=== PATIENT | male | born 1950 | race Caucasian/White ===

== ENCOUNTER 2025-01-08 17:17 | Emergency (ER) | payer OTHER ==
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
[2025-01-08] MEDS ORDERED: TDAP (DIPHTH,PERTUSS(ACELL),TET VAC) 0.5 ML VIAL IMVAC ONE (19:00)
[2025-01-08 19:17] VITALS: BP 145/75; TEMP 98; O2SAT 96
== END 2025-01-08 19:05 | disposition home or self-care (01) ==
LOC: ER 17:17
DX: S60.512A Abrasion of left hand, initial encounter (principal); S50.311A Abrasion of right elbow, initial encounter; V49.40XA Driver injured in collision with unspecified motor vehicles in traffic accident, initial encounter
CPT/HCPCS: 70450; 71250; 72125; 74176; 96372; 99284

== ENCOUNTER 2025-01-31 14:33 | Inpatient (IN) | payer OTHER ==
[2025-01-31] MEDS ORDERED: ONDANSETRON 4 MG/2 ML VIAL ONE ×3 (15:23→22:23)
[2025-01-31] MEDS ORDERED: MORPHINE 4 MG/ML SYR ONE ×2 (15:23→16:52)
[2025-01-31 15:44] LABS: Absolute Basophils 0.1 K/uL (0-0.5); Absolute Eosinophils 0.1 K/uL (0-0.5); Absolute Lymphocytes (CBC) 0.5 K/uL (0.7-4.9); Absolute Monocytes 0.8 K/uL (0.1-1.3); Absolute Neutrophil 6.6 K/uL (1.8-8.0); Eosinophils % 0.7 % (0-4.4); Hematocrit 40.3 % (39.6-49.0); Hemoglobin 14.2 g/dL (13.6-17.9); Lymphocytes % 6.5 % (15.3-44.8); MCH 29.3 pg (27.0-35.0); MCHC 35.2 g/dL (32.0-36.0); MCV 83.4 fL (80-100); MPV 8.4 fL (7.6-11.3); Monocytes % 10.1 % (3.3-12.3); Neutrophils % 81.7 % (41.7-73.7); Platelets 191 thou/uL (152-406); RBC Red Blood Cell Count 4.82 M/uL (4.33-5.43); Red Cell Distribution Width 13.9 % (12.1-15.2)
[2025-01-31 16:00] LABS: Anion Gap 8.2 mEq/L (5.0-15.0); Potassium 4.2 mEq/L (3.5-5.1)
[2025-01-31] MEDS ORDERED: METHOCARBAMOL 1,000 MG/10 ML VIAL ONE (16:51)
[2025-01-31] MEDS ORDERED: NA CHLORIDE 0.9% 100 ML ONE (16:52)
--- NOTE | 2025-01-31 17:19 | RAD REPORT ---
EXAMINATION: XR PELVIS CLINICAL INDICATION: Male, 74 years old. [facility] MAIN fall Bed Name: 17 TECHNIQUE: AP Pelvis radiograph was obtained. COMPARISON: No prior exam. FINDINGS: Oblique positioning limits evaluation. Oblique mildly displaced fracture of the left femora l intertrochanteric region extending just caudal to the base of the lesser trochanter. Glenohumeral joints are well aligned with mild to moderate degenerative changes. No evidence of AVN. Soft tissue s welling about the left hip. IMPRESSION: Oblique mildly displaced left intertrochanteric femoral fracture as above.
--- NOTE | 2025-01-31 17:20 | RAD REPORT ---
EXAMINATION: XR Femur Left CLINICAL INDICATION: Male, 74 years old. fall;Pain TECHNIQUE: 2 view radiograph of the left femur were obtained. COMPARISON: No prior exam. FINDINGS: Oblique mildly displaced left intertrochanteric fracture. Normal joint alignment. Mild to m oderate left hip joint degenerative changes other focal bone lesion. Soft tissue swelling about the left hip. Vascular calcifications. IMPRESSION: Oblique mildly displaced left femoral intertrochanteric fracture.
--- NOTE | 2025-01-31 18:27 | RAD REPORT ---
EXAM: CT CHEST, ABDOMEN AND PELVIS WITH CONTRAST CLINICAL INDICATION: Male, 74 years old. FALL TECHNIQUE: CT chest, abdomen, and pelvis was performed, following the administration of contrast, as per department protocol. Axial, sagittal and coronal reconstructions were obtained. One or more of the following dose reduction techniques were used: Automated exposure control, adjustment of the mA a nd/or kV according to patient size, and/or iterative reconstruction. Unless otherwise specified, incidental findings do not require dedicated imaging follow-up. COMPARISON: 01/08/2025 FINDINGS: LUNGS AND AIRWAYS: Elevation of the right hemidiaphragm with underlying atelectasis. No evidence of a irspace or interstitial process. No nodules. PLEURA: No pleural effusion. No pneumothorax. MEDIASTINUM AND LYMPH NODES: Bilobed nodular mass with calcifications along the lower pole left thyro id lobe, extending along the upper mediastinum, left paratracheal space, with the superior component measuring 3.7 cm, and inferior component measuring 3.3 cm. This is overall stable. No media stinal mass or fluid collection. Normal size mediastinal, hilar, and axillary lymph nodes. THORACIC AORTA: Normal caliber and configuration. PULMONARY ARTERIES: Normal caliber. OSSEOUS STRUCTURES AND CHEST WALL: Intact. LIVER: Normal in size and contour. 1.6 cm subcapsular fluid density cyst along the superior margin ne ar the caudate lobe junction No other suspicious focal lesion or biliary dilitation. BILIARY SYSTEM: Status post cholecystectomy. PANCREAS: No mass, ductal dilation, or shahida-pancreatic fluid. SPLEEN: Normal size. Ovoid hypoattenuating 2.7 cm lesion near the hilum, with questionable marginal n odular enhancement. This could represent a cyst or hemangioma.. ADRENALS: Normal; no mass. KIDNEYS AND URETERS: Stable size and bilateral lobulated contour more so on the left, atrophic change s on the left. Multiple cortical fluid density lesions, largest at the left lower pole measuring 4.6 cm. Other subcentimeter foci of hypoattenuation along the renal cortices. No hydronephrosis. URINARY BLADDER: Decompressed limiting evaluation, with Voss catheter in place GASTROINTESTINAL TRACT: No bowel obstruction, free air, significant free fluid or abscess. APPENDIX: No inflammatory changes in region of appendix. LYMPH NODES: Stable mildly prominent paracaval upper abdominal lymph node measuring 1.3 cm in short a xis. No other suspicious lymphadenopathy. ABDOMINAL AORTA AND OTHER VESSELS: Normal caliber aorta and IVC. MUSCULOSKELETAL: Comminuted and mildly displaced left femoral intertrochanteric fracture, with adjace nt muscular edema. No appreciable localized hematoma. Mildly displaced anterior left 10th rib fracture. IMPRESSION: Comminuted and mildly displaced left femoral intertrochanteric fracture. Mildly displaced anterior left 10th rib fracture. Other incidental findings including benign-appearing renal and hepatic cysts, as well as a splenic hi lum cyst versus hemangioma. Bilobed nodule/masses of the left lower pole thyroid lobe extending into the upper mediastinum, which can be further evaluated by dedicated thyroid ultrasound if not previously performed.
--- NOTE | 2025-01-31 18:34 | RAD REPORT ---
EXAM: CT brain without contrast HISTORY: fall COMPARISON: 01/08/2025 TECHNIQUE: Multiple contiguous axial images were obtained and a CT of the brain without contrast. Sag ittal and coronal reformats were performed. FINDINGS: No evidence of hydrocephalus, intracranial hemorrhage, or extra-axial fluid collection. Moderate brain atrophy, and nonspecific moderate periventricular and deep white matter changes, asym metrically more pronounced along the right centrum semiovale bowel, are stable, may suggest chronic microvascular ischemic changes. The calvarium is intact. The visualized paranasal sinuses and mastoid air cells are essentially clear . IMPRESSION: No evidence of acute intracranial abnormality. EXAM: CT of the cervical spine without contrast HISTORY: fall COMPARISON: None TECHNIQUE: Multiple contiguous axial images were obtained in a CT of the cervical spine without contr ast. Sagittal and coronal reformats were performed. FINDINGS: The vertebral bodies demonstrate normal height and alignment. No evidence of acute fracture or subluxation. No prevertebral soft tissue swelling is seen. The posterior facets are well aligned. Moderate to advanced degenerative changes. C3-4 and C4-5 contr ibuting to up to severe neural foraminal narrowing on the left at C5-6. Normal alignment of the skull base with the cervical spine is seen. The lung apices are unremarkable. IMPRESSION: No evidence of acute osseous abnormality of the cervical spine. Stable degenerative changes as above.
[2025-01-31 19:05] LABS: Specific Gravity 1.027 (1.005-1.030); Sqamous Epithelial None Seen /HPF (None Seen); Urine Bacteria <20 /HPF (<20); Urine Bilirubin NEGATIVE (Negative); Urine Blood Trace (Negative); Urine Clarity Extremely Turbid (Clear); Urine Color Light-Yellow (Yellow); Urine Crystals Unidentified Few /HPF (None Seen); Urine Glucose NEGATIVE (Negative); Urine Ketones NEGATIVE (Negative); Urine Micro Reflex YN NO BILL MICROSCOPIC; Urine Mucus Slight /HPF (None Seen); Urine Nitrite NEGATIVE (Negative); Urine Protein TRACE (Negative); Urine RBC <5 /HPF (None Seen); Urine Urobilinogen Normal (Normal); Urine WBC >50 /HPF (<5); Urine WBC Clump Occasional /HPF (None Seen); Urine Yeast (Budding) Occasional /HPF (None Seen); Urine pH 5.5 (5.0-7.0)
[2025-01-31] MEDS ORDERED: CEFTRIAXONE 1000 MG/VIAL ONE (19:18)
--- NOTE | 2025-01-31 19:18 | EDPHYS ---
Physician Documentation [facility] Name: Esteban Mccarthy Age: 74 yrs Sex: Male : 1950 Arrival Date: 01/31/2025 Time: 14:33 Bed 17 Private MD: ED Physician Siva Jenkins HPI: 01/31 14:45 This 74 yrs old Male presents to ER via EMS with complaints of Fall Injury. cp 14:45 Details of fall: The patient fell from an upright position, while getting off lawnmower.cp 14:45 Onset: The symptoms/episode began/occurred just prior to arrival. Associated injuries: cp The patient sustained left hip, decreased range of motion, painful injury. Severity of symptoms: in the emergency department the symptoms are unchanged, despite EMS interventions. Historical: - Allergies: 15:06 No Known Allergies; kj2 - PMHx: 15:06 Cerebrovascular accident; diabetes mellitus; Hypertensive disorder; kj2 - PSHx: 15:06 Stented artery; kj2 - Immunization history: Last tetanus immunization: unknown. - Infectious Disease History:: Denies. - Social history:: Smoking status: Patient denies any tobacco usage or history of. ROS: 14:50 Constitutional: Negative for body aches, chills, fever, poor PO intake, cp 14:50 Eyes: Negative for injury, pain, redness, and discharge, cp 14:50 Cardiovascular: Negative for chest pain, palpitations, 14:50 Respiratory: Negative for cough, shortness of breath, wheezing, 14:50 Abdomen/GI: Negative for abdominal pain, vomiting, diarrhea, constipation, 14:50 MS/extremity: Positive for decreased range of motion, pain, of the left hip, 14:50 Neuro: Negative for altered mental status, loss of consciousness, 14:50 All other systems are negative, Exam: 14:55 Constitutional: The patient appears in no acute distress, alert, awake, non-toxic, well cp developed, well nourished, uncomfortable, 14:55 Head/Face: Normocephalic, atraumatic. cp 14:55 Eyes: Periorbital structures: appear normal, Pupils: equal, round, and reactive to light and accomodation, Extraocular movements: intact throughout, Conjunctiva: normal, no exudate, no injection, Lids and lashes: appear normal, bilaterally, 14:55 ENT: External ear(s): are unremarkable, Nose: is normal, Mouth: Lips: moist, Oral mucosa: moist, Posterior pharynx: Airway: no evidence of obstruction, patent, 14:55 Neck: ROM/movement: pain, is not appreciated, limited range of motion, is not appreciated, 14:55 Chest/axilla: Inspection: normal, 14:55 Cardiovascular: Rate: normal, Rhythm: regular, Edema: is not appreciated, JVD: is not appreciated, 14:55 Respiratory: the patient does not display signs of respiratory distress, Respirations: normal, no use of accessory muscles, no retractions, labored breathing, is not present, Breath sounds: are clear throughout, no decreased breath sounds, no stridor, no wheezing, 14:55 Abdomen/GI: Inspection: abdomen appears normal, Bowel sounds: active, all quadrants, Palpation: abdomen is soft and non-tender, in all quadrants, 14:55 Musculoskeletal/extremity: Extremities: noted in the left hip: decreased ROM, pain, 14:55 Neuro: Orientation: to person, place \T\ time. Mentation: is normal, Motor: moves all fours, left side weakness from previous CVA, 20:17 ECG was reviewed by the Attending Physician. cp Vital Signs: 15:04 BP 131 / 72; Pulse 73; Resp 20; Temp 98.3; Pulse Ox 100% ; Weight 83.91 kg; Height 5 kj2 ft. 9 in. ; Pain 10/10; 15:44 BP 135 / 81; Pulse 78; Resp 20; Pulse Ox 96% ; kj2 17:11 BP 131 / 78; Pulse 76; Resp 20; Pulse Ox 98% ; kj2 18:22 BP 117 / 68; Pulse 65; Resp 18; Pulse Ox 100% ; kj2 19:27 BP 130 / 67; Pulse 75; Resp 20; Pulse Ox 95% ; kj2 15:04 Body Mass Index 27.32 (83.91 kg, 175.26 cm) kj2 15:04 Pain Scale: Adult kj2 [place] Coma Score: 14:50 Eye Response: spontaneous(4). Motor Response: obeys commands(6). Verbal Response: kj2 oriented(5). Total: 15. Trauma Score (Adult): 14:50 Eye Response: spontaneous(1); Verbal Response: oriented(1); Motor Response: obeys kj2 commands(2); Systolic BP: > 89 mm Hg(4); Respiratory Rate: 10 to 29 per min(4); Al Score: 15; Trauma Score: 12 MDM: 14:46 Medical Screening Exam initiated cp 16:00 Differential diagnosis: closed head injury, contusion, fracture, laceration, multiple cp trauma, intracranial bleed. 19:20 Data reviewed: vital signs, nurses notes, lab test result(s), EKG, radiologic studies, CT scan, plain films, I have discussed the patient's presentation/case with the attending Emergency Department Physician; and as a result, I will admit patient. 19:20 I considered the following discharge prescriptions or medication management in the emergency department Medications were administered in the Emergency Department. See MAR. Independent interpretation of the following test(s) in the Emergency Department EKG: See my EKG interpretation above X-Ray: My interpretation is images of left hip show displaced fracture. Care significantly affected by the following chronic conditions: Diabetes, Hypertension. Counseling: I had a detailed discussion with the patient and/or guardian regarding the historical points, exam findings, and any diagnostic results supporting the discharge/admit diagnosis, lab results, radiology results, the need for further work-up and treatment in the hospital. Response to treatment: the patient's symptoms have mildly improved after treatment. 01/31 15:13 Order name: Basic Metabolic Panel; Complete Time: 16:05 01/31 18:49 Interpretation: Reviewed. 01/31 15:13 Order name: CBC with Diff; Complete Time: 16:05 01/31 15:13 Order name: Type And Screen; Complete Time: 17:22 01/31 16:07 Order name: Urinalysis W/Microscopic; Complete Time: 19:07 01/31 19:07 Interpretation: Reviewed. 01/31 19:55 Order name: Protime (+INR) EDMN 01/31 19:55 Order name: PTT, Activated Partial Thromb EDMN 01/31 19:55 Order name: CBC with Automated Diff EDMS 01/31 19:55 Order name: CBC with Automated Diff EDMS 01/31 19:55 Order name: Comprehensive Metabolic Panel EDMN 01/31 19:55 Order name: Comprehensive Metabolic Panel [facility] 01/31 14:46 Order name: XRAY Pelvis; Complete Time: 17:22 cp 01/31 17:23 Interpretation: Report reviewed. cp 01/31 14:46 Order name: XRAY Femur LEFT; Complete Time: 17:22 cp 01/31 16:25 Order name: Head C Spine Mpr Wo Con; Complete Time: 18:46 EDMS 01/31 16:27 Order name: Chest Abdomen Pelvis W Cont; Complete Time: 18:46 EDMS 01/31 19:55 Order name: EKG Electrocardiogram; Complete Time: 20:35 EDMS 01/31 19:55 Order name: EKG Electrocardiogram; Complete Time: 20:35 EDMS 01/31 15:13 Order name: Labs collected and sent; Complete Time: 15:38 cp 01/31 15:13 Order name: IV; Complete Time: 15:38 cp 01/31 16:07 Order name: Voss; Complete Time: 16:31 cp EC:17 Rate is 75 beats/min. Rhythm is regular. ME interval is normal. QRS interval is cp prolonged at 108 msec. QT interval is normal. T waves are Inverted in lead aVR. Interpreted by me. Reviewed by me. Administered Medications: 15:38 Drug: morphine IVP or IV 4 mg IVP once over 4 mins Route: IVP; Infused Over: 4 mins; kj2 Site: right forearm; 23:55 Follow up: Response: No adverse reaction kj2 15:38 Drug: Ondansetron IVP 4 mg IVP once; over 2 minutes Route: IVP; Site: right forearm; kj2 23:55 Follow up: Response: No adverse reaction kj2 17:10 Drug: morphine IVP or IV 4 mg IVP once over 4 mins Route: IVP; Infused Over: 4 mins; kj2 Site: right forearm; 23:55 Follow up: Response: No adverse reaction kj2 17:10 Drug: Methocarbamol IVPB 1 grams IVPB once over 1 hrs; (mix in NS 100 mL) Route: IVPB; kj2 Infused Over: 1 hrs; Site: right forearm; 19:26 Drug: NS 0.9% IV 500 ml 500 ml IV at 1 bolus once; to be given as a bolus over 60 kj2 minutes Volume: 500 ml; Route: IV; Rate: 1 bolus; Site: right forearm; 22:10 Follow up: IV Status: Completed infusion; IV Intake: 500ml kj2 19:26 Drug: HYDROmorphone IVP 1 mg IVP once Route: IVP; Site: right forearm; kj2 22:09 Follow up: Response: No adverse reaction kj2 19:26 Drug: Rocephin IV 1 grams IV at calculated rate once; Given slow IV push per pharmacy kj2 instructions Route: IV; Rate: calculated rate; Site: right forearm; 22:09 Follow up: IV Status: Completed infusion; IV Intake: 10ml kj2 19:51 Drug: Ondansetron IVP 4 mg IVP once; over 2 minutes Route: IVP; Site: right forearm; kj2 22:09 Follow up: Response: No adverse reaction kj2 Disposition Summary: 01/31/25 19:17 Hospitalization Ordered Notes: Hospitalization Status: Inpatient Admission cp Provider: Vira Hitchcock cp Location: Telemetry/MedSurg (Inpatient) cp Condition: Stable cp Problem: new cp Symptoms: have improved cp Bed/Room Type: Standard cp Room Assignment: 402(01/31/25 22:06) kl Diagnosis - Displaced intertrochanteric fracture of left femur, initial encounter for closed cp fracture - Fracture of one rib, left side, initial encounter for closed fracture cp - Fall on same level, unspecified cp Forms: - Medication Reconciliation Form cp - SBAR form cp - Leadership Thank You Letter cp Addendum: 02/10/2025 21:37 Co-signature as Attending Physician, Siva Jenkins MD I reviewed the patient's care r n provided by the Advanced Practice Provider and agree with the diagnosis and treatment plan. Signatures: Dispatcher [employer] Sarah Medina RN RN kl Nieto, Roman, MD MD rn Page, Corey, PA PA cp Belia Merino RN RN kj2 Corrections: (The following items were deleted from the chart) 01/31 16:08 16:08 Urinalysis W/Microscopic+U.LAB.BRZ ordered. EDMS EDMS 16:25 16:06 Head C Spine CAP W Con+CT.RAD.BRZ ordered. EDMS EDMS 21:45 19:17 cp kl 22:06 21:45 201 kl kl
--- NOTE | 2025-01-31 19:18 | ER ---
Nurse's Notes [facility] Name: Esteban Mccarthy Age: 74 yrs Sex: Male : 1950 Arrival Date: 01/31/2025 Time: 14:33 Bed 17 Private MD: Diagnosis: Displaced intertrochanteric fracture of left femur, initial encounter for closed fracture;Fracture of one rib, left side, initial encounter for closed fracture;Fall on same level, unspecified Presentation: 01/31 14:50 Chief complaint: EMS states: fell off [place] [employer]. Care prior to arrival: kj2 Medication(s) given: Tylenol, 1000 mg. Mechanism of Injury: Fall fell from riding [employer]. Trauma event details: Injury occurred: January 31, 2025. 14:50 Acuity: SHIKHA 3 kj2 14:50 Method Of Arrival: EMS: [facility] kj2 14:50 Coronavirus screen: Client denies travel out of the [place] in the last 14 days. Ebola kj2 Screen: No symptoms or risks identified at this time. Initial Sepsis Screen: Does the patient meet any 2 criteria? Yes Does the patient have a suspected source of infection? No. Patient's initial sepsis screen is negative. Risk Assessment: Do you want to hurt yourself or someone else? Patient reports no desire to harm self or others. 14:50 Onset of symptoms was January 31, 2025. kj2 Historical: - Allergies: 15:06 No Known Allergies; kj2 - PMHx: 15:06 Cerebrovascular accident; diabetes mellitus; Hypertensive disorder; kj2 - PSHx: 15:06 Stented artery; kj2 - Immunization history: Last tetanus immunization: unknown. - Infectious Disease History:: Denies. - Social history:: Smoking status: Patient denies any tobacco usage or history of. Screenin:50 [facility] ED Fall Risk Assessment (Adult) History of falling in the last 3 months, kj2 including since admission Yes- single mechanical fall (1 pt) Confusion or Disorientation No (0 pts) Intoxicated or Sedated No (0 pts) Impaired Gait Yes (1 pt) Mobility Assist Device Used Yes (1 pt) Altered Elimination Yes (1 pt) Score/Fall Risk Level 3 or more points = High Risk Maintained a safe environment, Educated pt \T\ family on fall prevention, incl call for assistance when getting out of bed, Hourly rounding (assess needs \T\ fall precautionary measures) done. Abuse screen: Denies threats or abuse. Denies injuries from another. Nutritional screening: No deficits noted. Tuberculosis screening: No symptoms or risk factors identified. Primary Survey: 14:50 NO uncontrolled hemorrhage observed. Breathing/Chest: Spontaneous respiratory effort, kj2 equal unlabored respirations, breath sounds clear bilaterally, regular pattern, symmetrical chest rise and fall. Respiratory effort: unlabored, Breath sounds: clear. Circulation: No external hemorrhage present. Regular and strong central pulse, skin warm/dry/normal color. Disability Pupils are equal, round, reactive to light and accommodation. Exposure/Environment: All clothing and personal items were removed. Forensic evidence collection is not deemed to be indicated at this time. Items placed in patient belonging bag. 15:40 Reassessment Alertness and Airway: Awake and alert. The airway is patent. Breathing: kj2 Spontaneous respiratory effort, equal unlabored respirations, breath sounds clear bilaterally, regular pattern with symmetrical chest rise and fall. Circulation: No external hemorrhage noted. Regular and strong central pulse, skin warm/dry/normal color. Secondary Survey: 14:50 HEENT: No deficits noted. Gastrointestinal: Abdomen is non-distended. : No signs kj2 and/or symptoms were reported regarding the genitourinary system. Musculoskeletal: Reports pain in left hip. Assessment: 14:50 General: Appears uncomfortable, Behavior is calm, cooperative. Pain: Complains of pain kj2 in left hip Pain currently is 10 out of 10 on a pain scale. Neuro: Level of Consciousness is awake, Oriented to person, place, time, situation. Cardiovascular: Patient's skin is warm and dry. Respiratory: Airway Respiratory effort is even, unlabored. GI: No signs and/or symptoms were reported involving the gastrointestinal system. : No signs and/or symptoms were reported regarding the genitourinary system. 15:44 Reassessment: Patient appears in no apparent distress at this time. Patient and/or kj2 family updated on plan of care and expected duration. Pain level reassessed. Patient is alert, oriented x 3, equal unlabored respirations, skin warm/dry/pink. 17:11 Reassessment: Patient appears in no apparent distress at this time. Patient and/or kj2 family updated on plan of care and expected duration. Pain level reassessed. Patient is alert, oriented x 3, equal unlabored respirations, skin warm/dry/pink. 18:19 Reassessment: Patient appears in no apparent distress at this time. Patient and/or kj2 family updated on plan of care and expected duration. Pain level reassessed. Patient is alert, oriented x 3, equal unlabored respirations, skin warm/dry/pink. 19:27 Reassessment: Patient appears in no apparent distress at this time. Patient and/or kj2 family updated on plan of care and expected duration. Pain level reassessed. Patient is alert, oriented x 3, equal unlabored respirations, skin warm/dry/pink. Vital Signs: 15:04 BP 131 / 72; Pulse 73; Resp 20; Temp 98.3; Pulse Ox 100% ; Weight 83.91 kg; Height 5 kj2 ft. 9 in. ; Pain 10/10; 15:44 BP 135 / 81; Pulse 78; Resp 20; Pulse Ox 96% ; kj2 17:11 BP 131 / 78; Pulse 76; Resp 20; Pulse Ox 98% ; kj2 18:22 BP 117 / 68; Pulse 65; Resp 18; Pulse Ox 100% ; kj2 19:27 BP 130 / 67; Pulse 75; Resp 20; Pulse Ox 95% ; kj2 15:04 Body Mass Index 27.32 (83.91 kg, 175.26 cm) kj2 15:04 Pain Scale: Adult kj2 Al Coma Score: 14:50 Eye Response: spontaneous(4). Motor Response: obeys commands(6). Verbal Response: kj2 oriented(5). Total: 15. Trauma Score (Adult): 14:50 Eye Response: spontaneous(1); Verbal Response: oriented(1); Motor Response: obeys kj2 commands(2); Systolic BP: > 89 mm Hg(4); Respiratory Rate: 10 to 29 per min(4); Hazel Score: 15; Trauma Score: 12 ED Course: 14:44 Patient arrived in ED. bd 14:44 Reuben Michele PA is PHCP. cp 14:44 Siva Jenkins MD is Attending Physician. cp 14:50 Maintain EMS IV. Dressing intact. Good blood return noted. Site clean \T\ dry. Gauge \T\ kj 2 site: 20g right forearm. Flushed with 10 mL NS. 14:50 Patient maintains SpO2 saturation greater than 95% on room air. kj2 14:50 No provider procedures requiring assistance completed. kj2 14:50 Patient has correct armband on for positive identification. Bed in low position. Call kj2 light in reach. Provided Education on: call light. 14:50 Arm band placed on Patient placed in an exam room. kj2 14:59 Belia Merino, RN is Primary Nurse. kj2 15:01 Triage completed. kj2 15:28 XRAY Pelvis In Process Unspecified. EDMS 15:28 XRAY Femur LEFT In Process Unspecified. EDMS 16:31 Voss cath inserted, using sterile technique, 16 Fr., by me, balloon inflated, to ty gravity drainage. 17:01 Head C Spine Mpr Wo Con In Process Unspecified. EDMS 17:01 Chest Abdomen Pelvis W Cont In Process Unspecified. EDMS 19:16 Vira Hitchcock MD is Hospitalizing Provider. cp 23:24 Patient admitted, IV remains in place. ha1 Administered Medications: 15:38 Drug: morphine IVP or IV 4 mg IVP once over 4 mins Route: IVP; Infused Over: 4 mins; kj2 Site: right forearm; 23:55 Follow up: Response: No adverse reaction kj2 15:38 Drug: Ondansetron IVP 4 mg IVP once; over 2 minutes Route: IVP; Site: right forearm; kj2 23:55 Follow up: Response: No adverse reaction kj2 17:10 Drug: morphine IVP or IV 4 mg IVP once over 4 mins Route: IVP; Infused Over: 4 mins; kj2 Site: right forearm; 23:55 Follow up: Response: No adverse reaction kj2 17:10 Drug: Methocarbamol IVPB 1 grams IVPB once over 1 hrs; (mix in NS 100 mL) Route: IVPB; kj2 Infused Over: 1 hrs; Site: right forearm; 19:26 Drug: NS 0.9% IV 500 ml 500 ml IV at 1 bolus once; to be given as a bolus over 60 kj2 minutes Volume: 500 ml; Route: IV; Rate: 1 bolus; Site: right forearm; 22:10 Follow up: IV Status: Completed infusion; IV Intake: 500ml kj2 19:26 Drug: HYDROmorphone IVP 1 mg IVP once Route: IVP; Site: right forearm; kj2 22:09 Follow up: Response: No adverse reaction kj2 19:26 Drug: Rocephin IV 1 grams IV at calculated rate once; Given slow IV push per pharmacy kj2 instructions Route: IV; Rate: calculated rate; Site: right forearm; 22:09 Follow up: IV Status: Completed infusion; IV Intake: 10ml kj2 19:51 Drug: Ondansetron IVP 4 mg IVP once; over 2 minutes Route: IVP; Site: right forearm; kj2 22:09 Follow up: Response: No adverse reaction kj2 Medication: 15:00 VIS not applicable for this client. kj2 Intake: 22:09 IV: 10ml; Total: 10ml. kj2 22:10 IV: 500ml; Total: 510ml. kj2 Outcome: 19:17 Decision to Hospitalize by Provider. cp 23:23 Admitted to Tele accompanied by tech, via stretcher, room 402, with chart, ha1 23:23 Condition: stable 23:23 Instructed on the need for admit, Demonstrated understanding of instructions, 23:24 Patient left the ED. ha1 Signatures: Dispatcher [employer] EDMS Natty Hess Corey, PA PA cp Marilyn Bedoya, RN RN ha1 John Rmairez Krystal, PAUL RN kj2
[2025-01-31] MEDS ORDERED: NA CHLORIDE 0.9% 500 ML ONE (19:19)
[2025-01-31] MEDS ORDERED: HYDROMORPHONE HCL 1 MG/ML INJ ONE (19:19)
--- NOTE | 2025-01-31 19:57 | P.HP ---
Patient History Date of Service: 02/01/25 Reason for admission: Left hip fracture History of Present Illness: This is a pleasant 74-year-old male with a past medical history of CVA x 2, CAD (stent placed), diabetes, hypertension presenting after a fall from his tractor resulting in left hip fracture alongside left rib fracture. He states he was mowing his yard and when he went to get off the tractor he fell over. He did not lose consciousness. He denies any fevers, focal, chest, syncope-like symptom, diaphoresis. He rates the pain as a 9 out of 10. He is retired. He denies any illicit drug use. He does endorse some leg swelling Allergies No Known Allergies Allergy (Unverified 01/31/25 23:44) Home Medications: Amlodipine Besylate 10 mg PO DAILY 01/31/25 Aspirin [Aspirin Regimen] 81 mg PO DAILY 01/31/25 Clopidogrel Bisulfate [Plavix] 75 mg PO DAILY 01/31/25 Lisinopril/Hydrochlorothiazide [Lisinopril-Hctz 20-12.5 mg Tab] 1 each PO DAILY 01/31/25 Metformin ER [Glucophage ER] 500 mg PO DAILY 01/31/25 Metoprolol Tartrate 50 mg PO BID 01/31/25 Pravastatin Sodium 40 mg PO DAILY 01/31/25 Review of Systems General: Unremarkable Eyes: Unremarkable ENT: Unremarkable Respiratory: Unremarkable Cardiovascular: Unremarkable Gastrointestinal: Unremarkable Genitourinary: Unremarkable Musculoskeletal: Other (Hip pain) Integumentary: Bruising Neurological: Unremarkable Physical Examination - Physical Exam General: Alert, In no apparent distress HEENT: Normocephalic Neck: Supple Respiratory: Clear to auscultation bilaterally Cardiovascular: No edema Capillary refill: <2 Seconds Gastrointestinal: Normal bowel sounds Musculoskeletal: No clubbing Integumentary: No rashes Neurological: Normal gait, Normal speech Lymphatics: No axilla or inguinal lymphadenopathy - Studies Laboratory Data (last 24 hrs) 01/31/25 01/31/25 15:29 15:29 WBC 8.10 Hgb 14.2 Hct 40.3 Plt Count 191 Sodium 137 Potassium 4.2 BUN 27 H Creatinine 1.37 H Glucose 153 H Assessment and Plan - Plan Left hip fracture Left rib fracture UTI History of CVA Type 2 diabetes mellitus Hypertension Thyroid nodule/mass Elevated creatinine Admit to floor IV fluids and pain control Orthopedic surgery consulted Start Rocephin, urine culture pending Sliding scale insulin Follow-up thyroid nodules outpatient PT/OT DVT prophylaxis with Lovenox - Advance Directives Does patient have a Living Will: No Does patient have a Durable POA for Healthcare: No
[2025-01-31] MEDS: NA CHLORIDE 0.9% 1,000 ML IV SCH (20:00)
[2025-01-31] MEDS ORDERED: NA CHLORIDE 0.9% 1,000 ML ONE (22:05)
[2025-01-31] MEDS: ONDANSETRON 4 MG/2 ML VIAL IV PRN (22:23)
[2025-02-01] MEDS: MORPHINE 4 MG/ML SYR IV PRN (01:27)
[2025-02-01] MEDS ORDERED: GLUCAGON 1 MG/VIAL IM PRN (04:25)
[2025-02-01] MEDS ORDERED: D10W 125 ML IV PRN (04:25)
[2025-02-01] MEDS: CEFTRIAXONE 1,000 MG in NA CHLORIDE 0.9% 50 ML IVPB SCH (06:02)
[2025-02-01 06:37] LABS: Albumin 2.8 g/dL (3.4-5.0); Albumin/Globulin Ratio 0.9 (1.1-1.8); Anion Gap 10.3 mEq/L (5.0-15.0); Bilirubin Total 0.6 mg/dL (0.2-1.0); Globulin 3.1 g/dL (2.3-3.5); Potassium 4.3 mEq/L (3.5-5.1); Protein, Total 5.9 g/dL (6.4-8.2)
[2025-02-01 06:53] LABS: PT Prothrombin Time 13.1 SECONDS (10-13.0); Protime INR 1.16
[2025-02-01] MEDS: INSULIN REGULAR (HUMAN) 100 UNIT/ML SQ SCH (07:30)
[2025-02-01] MEDS: FLU (Fluarix Triv) TS24-25(6MOS UP)/PF 45 MCG/0.5 ML Syringe IM ONE (07:30)
[2025-02-01 07:36] LABS: Absolute Basophils 0.1 K/uL (0-0.5); Absolute Lymphocytes (CBC) 0.5 K/uL (0.7-4.9); Absolute Monocytes 1.3 K/uL (0.1-1.3); Absolute Neutrophil 9.4 K/uL (1.8-8.0); Basophils % 0.5 % (0-1.3); Eosinophils % 0.1 % (0-4.4); Hematocrit 36.2 % (39.6-49.0); Hemoglobin 12.3 g/dL (13.6-17.9); Lymphocytes % 4.1 % (15.3-44.8); MCV 85.3 fL (80-100); MPV 8.7 fL (7.6-11.3); Monocytes % 11.8 % (3.3-12.3); Neutrophils % 83.5 % (41.7-73.7); Nucleated Red Blood Cells % 0.1 % (0-0); Platelets 161 thou/uL (152-406); RBC Red Blood Cell Count 4.24 M/uL (4.33-5.43); Red Cell Distribution Width 14.3 % (12.1-15.2)
[2025-02-01] MEDS: PNEUMOCOCCAL VACCINE 0.5 ML IMVAC ONE (08:00)
--- NOTE | 2025-02-01 08:57 | CON ---
Date of Consultation: 02/01/2025 Reason For Consultation: Left hip pain. History Of Present Illness: Esteban is a 74-year-old male, who presented to the ER after sustaining a fall onto his left side with subsequent pain in the left hip and inability to bear weight. The patient was getting out of his tractor and lost balance and fell onto his left side. The patient has history of a stroke affecting his left side with left side being weaker. The patient mobilizes using a walker normally. The patient denies any other musculoskeletal complaints at this time. Review of Systems: As above, otherwise negative. Past Medical History: Includes coronary artery disease, diabetes, hypertension, history of stroke. Past Surgical History: Includes coronary artery stents. Allergies: NO KNOWN DRUG ALLERGIES. Home Medications: Amlodipine, aspirin, Plavix, lisinopril, hydrochlorothiazide, metformin, metoprolol, pravastatin. Social History: Denies tobacco use. Physical Examination: General: No apparent distress. HEENT: Normocephalic, atraumatic. Neck: Supple. Cardiovascular: Brisk cap refill to all digits. Chest: Nonlabored breathing. Abdomen: Nondistended. Psychiatric: Responds to exam. Musculoskeletal: Bilateral upper extremities: Functional range of motion without pain. No gross deformities. No obvious dislocations. Right lower extremity: Functional range of motion without pain. No gross deformities. No obvious dislocations. Left lower extremity: Pain with range of motion of the left hip. Tenderness to palpation over the left hip and swelling of the left thigh. Sensation grossly intact to the dorsal and plantar surface of the foot and vastly intact distally. Diagnostic Studies: X-rays and CAT scan demonstrate a displaced left intertrochanteric femur fracture. Assessment And Plan: Esteban is a 74-year-old male with a left intertrochanteric femur fracture. I discussed with the patient at length his diagnosis as well as risks and benefits associated with operative and nonoperative treatment measures. Given his displaced unstable fracture pattern, recommend surgical fixation with cephalomedullary device. Risks and benefits associated with the procedure were discussed with the patient at length and he expressed understanding. We will proceed with surgery later today. CV/MODL Voice ID: [id number] Report ID: [id number] [place]
[2025-02-01] MEDS: METOPROLOL TAR 50 MG TAB PO SCH (09:00)
[2025-02-01] MEDS: AMLODIPINE 10 MG TAB PO SCH (09:00)
[2025-02-01] MEDS: ATORVASTATIN 10 MG TAB PO SCH (09:00)
[2025-02-01] MEDS: NA CHLORIDE 0.9% 1,000 ML ONE ×2 (11:07→13:04)
[2025-02-01] MEDS: ROPLVACAINE HCL 20 ML ONE (11:14)
[2025-02-01] MEDS: CEFAZOLIN SODIUM 2 GM/VIAL ONE (11:20)
[2025-02-01] MEDS ORDERED: ROCURONIUM 50 MG/5 ML VIAL IV ONE (11:26)
[2025-02-01] MEDS ORDERED: KETOROLAC 30 MG/ML INJ ONE (11:26)
[2025-02-01] MEDS ORDERED: FENTANYL CITR 100 MCG/2 ML ONE (11:26)
[2025-02-01] MEDS ORDERED: propofoL 200 MG/20 ML VIAL IV ONE (11:26)
[2025-02-01] MEDS ORDERED: LIDOCAINE 2% MPF 5 ML VIAL ONE (11:26)
[2025-02-01] MEDS ORDERED: ONDANSETRON 4 MG/2 ML VIAL ONE (11:26)
[2025-02-01] MEDS ORDERED: MIDAZOLAM HCL 2 MG/2 ML INJ ONE (11:26)
[2025-02-01] MEDS ORDERED: dexAMETHasone 10 MG/ML VIAL ONE ×2 (11:26→12:13)
[2025-02-01] MEDS ORDERED: Phenylephrine HCl 10 MG/ML 1 ML VIAL ONE (12:00)
[2025-02-01] MEDS: TRANEXAMIC ACID 1,000 MG/10 ML VIAL IV ONE (12:05)
[2025-02-01] MEDS ORDERED: EPINEPHrine 1 MG/10 ML SYR ONE (12:13)
--- NOTE | 2025-02-01 13:34 | P.BOP ---
Preoperative diagnosis: Left intertrochanteric femur fracture Postoperative diagnosis: Same Primary procedure: Cephalomedullary fixation of left intertrochanteric femur fracture Stone Planer: NONE,NONE Estimated blood loss: 100 cc Specimen: None Findings: See dictation Anesthesia: General Complications: None Drain(s): Urinary catheter Implants: 11 x 400 mm 125 degree Biomet affixus nail, 95 mm lag screw Fluids & blood products: Per anesthesia record Transferred to: Recovery Room Condition: Good
--- NOTE | 2025-02-01 14:15 | RAD REPORT ---
EXAM: Fluoroscopy use, Hip in OR Left 2 View HISTORY: Left Hip rodding COMPARISON: None FINDINGS: Multiple images were sent to PACS, during a fluoroscopically guided procedure. No radiologi st was involved in protocoling or performance of the study, and no radiologist was present for the duration of the procedure. No interpretation of the saved images will be provided. Total fluoroscopy time: 1.3 minutes. IMPRESSION: Documentation of fluoroscopy use as above.
[2025-02-01] MEDS: EPHEDRINE SULF 50 MG/ML VIAL ONE (14:19)
[2025-02-01] MEDS: ONDANSETRON 4 MG/2 ML VIAL ONE (14:22)
[2025-02-01 15:01] LABS: Hematocrit 31.5 % (39.6-49.0); Hemoglobin 10.7 g/dL (13.6-17.9)
--- NOTE | 2025-02-01 15:12 | RAD REPORT ---
EXAMINATION: XR LEFT FEMUR CLINICAL INDICATION: . s/p L hip nail TECHNIQUE: Multiple views of the left femur were obtained. COMPARISON: No prior exam. FINDINGS: Intramedullary allie is seen spanning the femur. Skin james are noted laterally and distall y. No unexpected postoperative finding.
--- NOTE | 2025-02-01 16:22 | P.PN ---
Subjective Date of Service: 02/01/25 The OR for open reduction internal fixation of femur fracture. Patient will get physical therapy started in work on patient going to inpatient rehab. Review of Systems 10-point ROS is otherwise unremarkable Physical Examination - Vital Signs Temperature: 97.9 F Blood Pressure: 121/57 Pulse: 98 Respirations: 18 Pulse Ox (%): 90 - Physical Exam General: Alert, In no apparent distress HEENT: Atraumatic, PERRLA, EOMI Neck: Supple, JVD not distended Respiratory: Clear to auscultation bilaterally, Normal air movement Cardiovascular: Regular rate/rhythm, Normal S1 S2 Gastrointestinal: Normal bowel sounds, No tenderness Musculoskeletal: No tenderness Integumentary: No rashes Neurological: Normal speech, Normal tone, Normal affect Lymphatics: No axilla or inguinal lymphadenopathy - Studies Medications List Reviewed: Yes Assessment & Plan - Problems (Diagnosis) (1) Closed left hip fracture Current Visit: Yes Status: Acute (2) CVA (cerebral vascular accident) Current Visit: Yes Status: Acute (3) HTN (hypertension) Current Visit: Yes Status: Acute (4) DM2 (diabetes mellitus, type 2) Current Visit: Yes Status: Acute - Plan Plan: 1. Patient with close left hip fracture status post open reduction internal fixation; plan to continue with physical therapy and we will do DVT prophylaxis and pain control. Working on inpatient rehab placement 2. History of CVA; continue with antiplatelet therapy and statin therapy 3. Metabolic syndrome; continue with strict blood pressure and blood sugar control Discharge Plan: Home Plan to discharge in: Greater than 2 days - Advance Directives Does patient have a Living Will: No Does patient have a Durable POA for Healthcare: No - Code Status/Comfort Care Code Status Assessed: Yes Code Status: Full Code Critical Care: No Time Spent Managing PTS Care (In Minutes): 35
[2025-02-01] MEDS ORDERED: ENOXAPARIN 40 MG/0.4 ML SQ SCH (17:00)
[2025-02-01] MEDS: HYDROCODONE/APAP 7.5/325 MG TAB PO PRN (18:02)
[2025-02-01] MEDS: CEFAZOLIN SODIUM 2 GM in NA CHLORIDE 0.9% 100 ML IVPB SCH (18:04)
[2025-02-02] MEDS: ENOXAPARIN 40 MG/0.4 ML SQ SCH (08:28)
--- NOTE | 2025-02-02 10:14 | P.PN ---
Subjective Date of Service: 02/02/25 Chief Complaint: Left hip fracture Subjective: Working w/ PT Pain controlled. Physical Examination - Vital Signs Temperature: 98.2 F Blood Pressure: 125/66 Pulse: 79 Respirations: 18 Pulse Ox (%): 96 - Physical Exam General: Alert, In no apparent distress Musculoskeletal: Other (Left lower extremity: Dressing with mild sanguinous drainage; mild swelling to the left thigh; positive EHL/FHL/GSC/TA; sensation grossly intact over dorsal and plantar foot) - Studies Medications List Reviewed: Yes Assessment And Plan - Plan Esteban is a 74-year-old male status post left hip nail postoperative day #1 - Acute postoperative blood loss anemia; continue to monitor H&H - PT to mobilize touchdown weightbearing left lower extremity - Lovenox for DVT prophylaxis - Await inpatient rehab eval and insurance approval
--- NOTE | 2025-02-02 10:34 | P.OP ---
Preoperative diagnosis: Left intertrochanteric femur fracture Postoperative diagnosis: Same Primary procedure: Cephalomedullary fixation of left intertrochanteric femur fracture Anesthesia: General Estimated blood loss: 100 cc Specimen: None Findings: See dictation Operative Technique: Indication For Procedure: Esteban is a 74-year-old male who presented to the ER after sustaining a fall with subsequent pain to the left hip. X-rays demonstrated a displaced left intertrochanteric femur fracture with a long split below the lesser trochanter. I discussed with the patient at length the diagnosis as well as treatment options. Given the displaced fracture and the fracture pattern, I elected to proceed with long cephalomedullary fixation of the left intertrochanteric femur fracture. Description Of Procedure: After informed consent was obtained, the patient was identified in the preoperative holding area. The left lower extremity was marked. The patient was then brought back to the operative room, transferred to the operating table in supine fashion, placed under general LMA anesthesia. The patient was placed on the fracture table with his extremities well padded. The left lower extremity was manipulated on the fracture table, and fluoroscopy was used to ensure proper reduction of the fracture. Once fracture was reduced, the left lower extremity was prepped and draped in usual sterile fashion. A time-out was initiated. The correct patient and procedure were confirmed and identified. The patient did receive his preoperative prophylactic antibiotics. Approximately, a 5 cm longitudinal incision was made just proximal to the greater trochanter. Dissection was taken down through the tensor fascia jigar. A guide pin was then placed on the tip of the greater trochanter and down the femoral canal in an antegrade fashion. Proper positioning was confirmed using fluoroscopy. Anterior reamer was placed over the guide pin, followed by a ball-tipped guidewire down the femoral canal to the distal femur. The femoral canal was then reamed in 1 mm increments starting at 8 mm reamer to a 13 mm reamer with good fit. At that point, an 11 mm x 400 mm femoral nail was selected with a 125-degree neck angle as calculated using preoperative imaging. A guide pin was then placed down over the lateral hip into the center-center position on the femoral head, confirming the location was femoral with fluoroscopy. The center-center pin was measured and a size 95 mm lag screw was selected. A 95 mm lag screw was placed followed by placement of an 80 mm antirotational screw. Next, fluoroscopy was used to confirm proper positioning. A single interlocking screw was placed in distal portion of the nail using the perfect bill moore's slough technique with flouroscopy. It was placed in bicortical manner. The wounds were then irrigated thoroughly with normal saline. The femoral implant was locked into position. The deep tissue was approximated using 0 Vicryl. Subcutaneous tissue was approximated using a 2-0 Vicryl. Skin was approximated using james. Sterile dressings were applied. The patient was brought off the fracture table and placed back onto his bed in supine position without complication. Postoperative Plan: The patient will be touchdown weightbearing to the left lower extremity for the first 6 weeks. He will follow up in my clinic in 2 weeks for wound check and staple removal. Complications: None Drain(s): Urinary catheter Implants: 11 x 400, 125 degree mm Biomet affixus nail, 95 mm lag screw Fluids & blood products: per anesthesia record Transferred to: Recovery Room Condition: Good
[2025-02-02 11:38] LABS: Absolute Lymphocytes (CBC) 0.4 K/uL (0.7-4.9); Absolute Monocytes 1.9 K/uL (0.1-1.3); Absolute Neutrophil 10.1 K/uL (1.8-8.0); Basophils % 0.4 % (0-1.3); Hematocrit 26.1 % (39.6-49.0); Hemoglobin 8.9 g/dL (13.6-17.9); Lymphocytes % 3.1 % (15.3-44.8); MCH 29.2 pg (27.0-35.0); MCHC 34.2 g/dL (32.0-36.0); MCV 85.4 fL (80-100); MPV 8.9 fL (7.6-11.3); Monocytes % 15.3 % (3.3-12.3); Neutrophils % 81.2 % (41.7-73.7); Platelets 134 thou/uL (152-406); RBC Red Blood Cell Count 3.06 M/uL (4.33-5.43)
[2025-02-02 11:49] LABS: Anion Gap 8.6 mEq/L (5.0-15.0); Potassium 4.6 mEq/L (3.5-5.1)
--- NOTE | 2025-02-03 07:10 | P.PN ---
Date of Service: 02/02/25 Subjective Patient POD #1 and has done well in the perioperative period. Continue with physical therapy. Working on placement. Inpatient rehab pending. Physical Examination - Vital Signs reviewed - Physical Exam General: Alert, In no apparent distress Respiratory: Clear to auscultation bilaterally, Normal air movement Cardiovascular: Regular rate/rhythm, Normal S1 S2 Gastrointestinal: Normal bowel sounds, No tenderness Neurological: No focal deficits - Studies Medications List Reviewed: Yes Assessment & Plan - Problems (Diagnosis) (1) Closed left hip fracture Current Visit: Yes Status: Acute (2) CVA (cerebral vascular accident) Current Visit: Yes Status: Acute (3) HTN (hypertension) Current Visit: Yes Status: Acute (4) DM2 (diabetes mellitus, type 2) Current Visit: Yes Status: Acute - Plan Continue with plan of care as mentioned below: 1. Patient with close left hip fracture status post open reduction internal fixation; plan to continue with physical therapy and we will do DVT prophylaxis and pain control. Working on inpatient rehab placement 2. History of CVA; continue with antiplatelet therapy and statin therapy 3. Metabolic syndrome; continue with strict blood pressure and blood sugar control Discharge Plan: Home Plan to discharge in: Greater than 2 days - Advance Directives Does patient have a Living Will: No Does patient have a Durable POA for Healthcare: No - Code Status/Comfort Care Code Status Assessed: Yes Code Status: Full Code Critical Care: No Time Spent Managing PTS Care (In Minutes): 30
--- NOTE | 2025-02-03 07:12 | P.PN ---
Date of Service: 02/03/25 Subjective Patient continues to do well with no new complaints. Patient denies any new complaints. Physical Examination - Vital Signs reviewed - Physical Exam General: Alert, In no apparent distress Respiratory: Clear to auscultation bilaterally, Normal air movement Cardiovascular: Regular rate/rhythm, Normal S1 S2 Gastrointestinal: Normal bowel sounds, No tenderness Neurological: Normal speech, Normal tone, Normal affect - Studies Medications List Reviewed: Yes Assessment & Plan - Problems (Diagnosis) (1) Closed left hip fracture Current Visit: Yes Status: Acute (2) CVA (cerebral vascular accident) Current Visit: Yes Status: Acute (3) HTN (hypertension) Current Visit: Yes Status: Acute (4) DM2 (diabetes mellitus, type 2) Current Visit: Yes Status: Acute - Plan Continue with plan of care as mentioned below: 1. Patient with close left hip fracture status post open reduction internal fixation POD #2; plan to continue with physical therapy and we will do DVT prophylaxis and pain control. Working on inpatient rehab placement 2. History of CVA; continue with antiplatelet therapy and statin therapy 3. Metabolic syndrome; continue with strict blood pressure and blood sugar control Discharge Plan: Home Plan to discharge in: Greater than 2 days - Advance Directives Does patient have a Living Will: No Does patient have a Durable POA for Healthcare: No - Code Status/Comfort Care Code Status Assessed: Yes Code Status: Full Code Critical Care: No Time Spent Managing PTS Care (In Minutes): 30
[2025-02-03 07:26] LABS: Absolute Lymphocytes (CBC) 0.4 K/uL (0.7-4.9); Absolute Monocytes 1.1 K/uL (0.1-1.3); Absolute Neutrophil 6.7 K/uL (1.8-8.0); Basophils % 0.5 % (0-1.3); Eosinophils % 0.3 % (0-4.4); Hematocrit 25.6 % (39.6-49.0); Hemoglobin 8.8 g/dL (13.6-17.9); Lymphocytes % 5.3 % (15.3-44.8); MCH 29.5 pg (27.0-35.0); MCHC 34.5 g/dL (32.0-36.0); MCV 85.5 fL (80-100); MPV 8.7 fL (7.6-11.3); Monocytes % 13.3 % (3.3-12.3); Neutrophils % 80.6 % (41.7-73.7); Platelets 118 thou/uL (152-406); RBC Red Blood Cell Count 2.99 M/uL (4.33-5.43); Red Cell Distribution Width 14.1 % (12.1-15.2)
[2025-02-03 07:54] LABS: Anion Gap 8.1 mEq/L (5.0-15.0); Potassium 4.1 mEq/L (3.5-5.1)
[2025-02-03 08:02] LABS: Troponin High Sensitivity 98.8 pg/mL (<58.9)
[2025-02-04] MEDS: ENOXAPARIN 30 MG/0.3 ML SQ SCH (09:19)
[2025-02-04] MEDS: DOCUSATE NA 100 MG CAP PO PRN (21:08)
[2025-02-05 21:46] LABS: Anion Gap 9.1 mEq/L (5.0-15.0); Phosphorus 1.8 mg/dL (2.5-4.9)
[2025-02-05 21:48] LABS: Potassium 4.1 mEq/L (3.5-5.1)
--- NOTE | 2025-02-05 23:14 | CON ---
Date of Consultation: 02/05/2025 Reason For Consultation: Chest pain with positive troponin. History Of Present Illness: This is a 74-year-old male, who presented with past medical history of C [facility] with some left-sided weakness, has hypertension, diabetes, dyslipidemia, coronary artery disease w ith stents placement in the past. He had a fall and sustained hip fracture on the left. He was admi tted, and he had surgical repair, but last night, he had episode of chest pain, was pressure like, ra diates to shoulder, lasts for about 25 minutes and resolves. Troponin was borderline elevated. Karla clemente I was consulted. I saw him by bedside and he refused any cardiac workup at this moment as he just had hip surgery. He wants to wait for an outpatient basis. No active chest pain at the present roxann e. Past Medical History: As outlined above in the HPI. Medications: Refer reconciliation sheet for detailed list. Medications reviewed. Allergies: NO KNOWN DRUG ALLERGIES. Family History: No premature coronary artery disease or cancer. Social History: He does not smoke or drink. Does not use any drugs. Review of Systems: All systems reviewed are negative except as mentioned in HPI. Physical Examination: Vital Signs: Reviewed. Head and Neck: Pupils are equal, reactive to light. Intact eye movements. No JVD. No cervical ly mphadenopathy. Neck is supple. Thyroid is not enlarged. Lungs: Clear to auscultation bilaterally. No rhonchi, wheezing, or crackles. No accessory muscle u se. Heart: Regular rate and rhythm. No extra sounds. Abdomen: Soft, nontender. Bowel sounds positive. No organomegaly. No masses or hernia. No rigidi ty or rebound. Extremities: No edema, clubbing, or cyanosis. Intact pulses. Skin: No rash. No nodules. Neurologic: Alert, awake, and oriented x3. No acute focal deficits appreciated. Investigations: Troponin 2 sets. Troponin peaked at 107. BUN 36, creatinine 1.09. Hemoglobin is 8 .8. Assessment/recommendation: 1. Chest pain with known history of coronary artery disease. Borderline elevated troponin. Recommen d ischemia evaluation with stress test versus heart catheterization. However, he declined any workup at this moment since he is not comfortable after his hip surgery. I recommend to continue medical t reatment for now with beta-nir and baby aspirin and statin and if further chest pain episodes hap pen, then I will discuss with him again the option of coronary angiogram as such since the patient do es not want anything done at this hospital stay, and Cardiology will sign off and ask the patient to follow up with us in the office as soon as he gets discharged for his further ischemia evaluation. 2. Dyslipidemia. Continue Lipitor. Recommend to increase the dose to 40 mg q.h.s. 3. Hypertension. Blood pressure is controlled. Continue current therapy. 4. Hip fracture status post repair. Physical therapy is in progress. SR/MODL Voice ID: [id number] Report ID: [id number]
[2025-02-05] MEDS: POTASSIUM PHOS IN 0.9 % NACL 15 MMOL/250 ML BAG IV ONE (23:46)
[2025-02-05] MEDS ORDERED: DOCUSATE NA/SENNA CONC 1 TAB PO PRN (23:57)
[2025-02-05] MEDS ORDERED: LACTULOSE 20 GM/30 ML UCUP PO PRN (23:58)
[2025-02-06] MEDS: FUROSEMIDE 20 MG/ 2ML VIAL IV ONE (11:40)
[2025-02-06] MEDS: ALBUMIN HUMAN 25% 50 ML IV ONE (11:40)
[2025-02-06 12:49] LABS: Absolute Eosinophils 0.1 K/uL (0-0.5); Absolute Lymphocytes (CBC) 0.6 K/uL (0.7-4.9); Absolute Monocytes 1.2 K/uL (0.1-1.3); Absolute Neutrophil 6.3 K/uL (1.8-8.0); Basophils % 0.6 % (0-1.3); Hematocrit 26.3 % (39.6-49.0); Lymphocytes % 7.2 % (15.3-44.8); MCH 28.9 pg (27.0-35.0); MCHC 34.4 g/dL (32.0-36.0); MCV 84.2 fL (80-100); MPV 8.3 fL (7.6-11.3); Monocytes % 14.4 % (3.3-12.3); Neutrophils % 76.8 % (41.7-73.7); Nucleated Red Blood Cells % 0.2 % (0-0); Platelets 214 thou/uL (152-406); RBC Red Blood Cell Count 3.13 M/uL (4.33-5.43); Red Cell Distribution Width 13.9 % (12.1-15.2)
[2025-02-06 13:15] LABS: AST/SGOT 15 U/L (15-37); Albumin 2.7 g/dL (3.4-5.0); Alkaline Phosphatase 90 U/L (45-117); Anion Gap 9.5 mEq/L (5.0-15.0); BUN Blood Urea Nitrogen 19 mg/dL (7-18); Bicarbonate 24 mEq/L (21-32); Bilirubin Total 1.5 mg/dL (0.2-1.0); Globulin 2.8 g/dL (2.3-3.5); Glomerular Filtration Rate 85 ml/min (=/>90); Glucose Level 176 mg/dL (74-106); Phosphorus 2.4 mg/dL (2.5-4.9); Potassium 3.5 mEq/L (3.5-5.1); Protein, Total 5.5 g/dL (6.4-8.2); Sodium Level 139 mEq/L (136-145)
[2025-02-06 13:20] LABS: ALT/SGPT < 14 U/L (16-61)
[2025-02-06] MEDS: ACETAMINOPHEN 500 MG TAB PO PRN (21:17)
[2025-02-07 01:58] VITALS: BMI 27.0
--- NOTE | 2025-02-08 03:14 | P.PN ---
Date of Service: 02/04/25 Subjective Patient doing well and awaiting for inpatient rehab. Continue with therapy. Physical Examination - Vital Signs reviewed - Physical Exam General: Alert, In no apparent distress Respiratory: Clear to auscultation bilaterally, Normal air movement Cardiovascular: Regular rate/rhythm, Normal S1 S2 Gastrointestinal: Normal bowel sounds, No tenderness Neurological: No focal deficits; Msk: Left hip pain with range of motion Skin: Hematoma in the pubic area in the left thigh region - Studies Medications List Reviewed: Yes Assessment & Plan - Problems (Diagnosis) (1) Closed left hip fracture Current Visit: Yes Status: Acute (2) CVA (cerebral vascular accident) Current Visit: Yes Status: Acute (3) HTN (hypertension) Current Visit: Yes Status: Acute (4) DM2 (diabetes mellitus, type 2) Current Visit: Yes Status: Acute - Plan Continue with plan of care as mentioned below: 1. Patient with close left hip fracture status post open reduction internal fixation POD #3; plan to continue with physical therapy and we will do DVT prophylaxis and pain control. Patient denied inpatient rehab and waiting for appeal. 2. History of CVA; continue with antiplatelet therapy and statin therapy 3. Metabolic syndrome; continue with strict blood pressure and blood sugar control Discharge Plan: Home Plan to discharge in: Greater than 2 days - Advance Directives Does patient have a Living Will: No Does patient have a Durable POA for Healthcare: No - Code Status/Comfort Care Code Status Assessed: Yes Code Status: Full Code Critical Care: No Time Spent Managing PTS Care (In Minutes): 30
--- NOTE | 2025-02-08 03:16 | P.PN ---
Date of Service: 02/05/25 Subjective Patient doing well and awaiting for inpatient rehab. Continue with physical therapy. [employer] insurance denied patient's request for inpatient rehab. Appeal process in place at this time. Physical Examination - Vital Signs reviewed - Physical Exam General: Alert, In no apparent distress Respiratory: Clear to auscultation bilaterally, Normal air movement Cardiovascular: Regular rate/rhythm, Normal S1 S2 Gastrointestinal: Normal bowel sounds, No tenderness Neurological: No focal deficits; Msk: Left hip pain with range of motion Skin: Hematoma in the pubic area in the left thigh region - Studies Medications List Reviewed: Yes Assessment & Plan - Problems (Diagnosis) (1) Closed left hip fracture Current Visit: Yes Status: Acute (2) CVA (cerebral vascular accident) Current Visit: Yes Status: Acute (3) HTN (hypertension) Current Visit: Yes Status: Acute (4) DM2 (diabetes mellitus, type 2) Current Visit: Yes Status: Acute - Plan Continue with plan of care as mentioned below: 1. Patient with close left hip fracture status post open reduction internal fixation POD #3; plan to continue with physical therapy and we will do DVT prophylaxis and pain control. Patient denied inpatient rehab and waiting for appeal. 2. History of CVA; continue with antiplatelet therapy and statin therapy 3. Metabolic syndrome; continue with strict blood pressure and blood sugar control Discharge Plan: Home Plan to discharge in: Greater than 2 days - Advance Directives Does patient have a Living Will: No Does patient have a Durable POA for Healthcare: No - Code Status/Comfort Care Code Status Assessed: Yes Code Status: Full Code Critical Care: No Time Spent Managing PTS Care (In Minutes): 30
--- NOTE | 2025-02-08 03:22 | P.PN ---
Date of Service: 02/06/25 Subjective Patient is upset because he was not cleaned quick enough. Taniya leahy was called on the patient and patient calmed down quickly. Currently patient doing well with no new complaints. Continue to work with physical therapy in the morning. Appeal process in place. Physical Examination - Vital Signs reviewed - Physical Exam General: Alert, In no apparent distress Respiratory: Clear to auscultation bilaterally, Normal air movement Cardiovascular: Regular rate/rhythm, Normal S1 S2 Gastrointestinal: Normal bowel sounds, No tenderness Neurological: No focal deficits; Msk: Left hip pain with range of motion Skin: Hematoma in the pubic area in the left thigh region - Studies Medications List Reviewed: Yes Assessment & Plan - Problems (Diagnosis) (1) Closed left hip fracture Current Visit: Yes Status: Acute (2) CVA (cerebral vascular accident) Current Visit: Yes Status: Acute (3) HTN (hypertension) Current Visit: Yes Status: Acute (4) DM2 (diabetes mellitus, type 2) Current Visit: Yes Status: Acute - Plan Continue with plan of care as mentioned below: 1. Patient with close left hip fracture status post open reduction internal fixation POD #5; plan to continue with physical therapy and DVT prophylaxis and pain control. Patient denied inpatient rehab and waiting for appeal. 2. History of CVA; continue with antiplatelet therapy and statin therapy 3. Metabolic syndrome; continue with strict blood pressure and blood sugar control Discharge Plan: Home Plan to discharge in: Greater than 2 days - Advance Directives Does patient have a Living Will: No Does patient have a Durable POA for Healthcare: No - Code Status/Comfort Care Code Status Assessed: Yes Code Status: Full Code Critical Care: No Time Spent Managing PTS Care (In Minutes): 30
--- NOTE | 2025-02-08 03:26 | P.PN ---
Date of Service: 02/07/25 Subjective Patient is doing well with no new complaints. Patient clinical symptoms are stable. Patient participated more with physical therapy than he has so far. Slowly improving. Still having some pain in the left hip. Labs are otherwise stable. Physical Examination - Vital Signs reviewed - Physical Exam General: Alert, In no apparent distress Respiratory: Clear to auscultation bilaterally, Normal air movement Cardiovascular: Regular rate/rhythm, Normal S1 S2 Gastrointestinal: Normal bowel sounds, No tenderness Neurological: No focal deficits; Msk: Left hip pain with range of motion Skin: Hematoma in the pubic area in the left thigh region - Studies Medications List Reviewed: Yes Assessment & Plan - Problems (Diagnosis) (1) Closed left hip fracture Current Visit: Yes Status: Acute (2) CVA (cerebral vascular accident) Current Visit: Yes Status: Chronic (3) HTN (hypertension) Current Visit: Yes Status: Chronic (4) DM2 (diabetes mellitus, type 2) Current Visit: Yes Status: Chronic (5) Anemia, ABL Current Visit: Yes Status: Acute - Plan Continue with plan of care as mentioned below: 1. Patient with close left hip fracture status post open reduction internal fixation POD #5; plan to continue with physical therapy and DVT prophylaxis and pain control. Patient denied inpatient rehab and waiting for appeal. 2. History of CVA; continue with antiplatelet therapy and statin therapy 3. Metabolic syndrome; continue with strict blood pressure and blood sugar control 4. Anemia; acute blood loss; continue monitoring H&H. Patient was bruising postsurgically but hemoglobin has been stable and we will continue to monitor. Discharge Plan: Home Plan to discharge in: Greater than 2 days - Advance Directives Does patient have a Living Will: No Does patient have a Durable POA for Healthcare: No - Code Status/Comfort Care Code Status Assessed: Yes Code Status: Full Code Critical Care: No Time Spent Managing PTS Care (In Minutes): 30
[2025-02-08 07:53] LABS: Absolute Basophils 0.1 K/uL (0-0.5); Absolute Eosinophils 0.1 K/uL (0-0.5); Absolute Lymphocytes (CBC) 0.7 K/uL (0.7-4.9); Absolute Monocytes 1.1 K/uL (0.1-1.3); Absolute Neutrophil 6.3 K/uL (1.8-8.0); Basophils % 0.8 % (0-1.3); Eosinophils % 1.5 % (0-4.4); Hematocrit 25.9 % (39.6-49.0); Hemoglobin 8.9 g/dL (13.6-17.9); Lymphocytes % 8.1 % (15.3-44.8); MCH 29.2 pg (27.0-35.0); MCHC 34.4 g/dL (32.0-36.0); MCV 84.8 fL (80-100); MPV 8.6 fL (7.6-11.3); Monocytes % 13.6 % (3.3-12.3); Nucleated Red Blood Cells % 0.1 % (0-0); Platelets 209 thou/uL (152-406); RBC Red Blood Cell Count 3.05 M/uL (4.33-5.43); Red Cell Distribution Width 14.5 % (12.1-15.2)
[2025-02-08 08:04] LABS: AST/SGOT 13 U/L (15-37); Albumin 2.3 g/dL (3.4-5.0); Albumin/Globulin Ratio 0.8 (1.1-1.8); Alkaline Phosphatase 85 U/L (45-117); Anion Gap 9.5 mEq/L (5.0-15.0); BUN Blood Urea Nitrogen 16 mg/dL (7-18); Bicarbonate 26 mEq/L (21-32); Bilirubin Total 1.3 mg/dL (0.2-1.0); Globulin 2.8 g/dL (2.3-3.5); Glomerular Filtration Rate 90 ml/min (=/>90); Glucose Level 124 mg/dL (74-106); Potassium 3.5 mEq/L (3.5-5.1); Protein, Total 5.1 g/dL (6.4-8.2); Sodium Level 141 mEq/L (136-145)
[2025-02-08 08:06] LABS: ALT/SGPT < 14 U/L (16-61)
[2025-02-08 08:34] LABS: Platelet Estimate ADEQ; White Blood Cell Scan OK (OK)
[2025-02-08 08:35] LABS: Blood Morphology Comment NOT SEEN (NOT SEEN)
--- NOTE | 2025-02-08 15:29 | P.PN ---
Subjective Date of Service: 02/08/25 Chief Complaint: Left hip fracture Subjective: No chest pain or shortness of breath. No nausea or vomiting. No abdominal pain. No obvious bleeding. Looks comfortable in the bed. Hip pain is controlled. Objective: General appearance: Alert and comfortable CVS: Normal S1 and S2 Lungs: Clear to auscultation bilaterally Abdomen: Soft, bowel sounds present, no tenderness Extremities: No lower extremity edema Physical Examination - Vital Signs Temperature: 97.9 F Blood Pressure: 110/63 Pulse: 83 Respirations: 16 Pulse Ox (%): 97 - Studies Medications List Reviewed: Yes Assessment And Plan - Plan 1. Left hip fracture s/p surgery, f/u with orhto 2. Left rib fracture: paincontrolled 3. UTI: given Rocephin, urine culture not sent, no fever and wbc normal now 4. History of CVA: continue with antiplatelet therapy and statin therapy 5. Type 2 diabetes mellitus: Sliding scale insulin 6. Hypertension 7. Thyroid nodule/mass: Follow-up with US as outpatient 8. Elevated creatinine 9. Anemia; acute blood loss; continue monitoring H&H. 10. Elevated trop: get echo Plan discussed with patient and nursing staff, discussed with case management team, waiting for placement.
[2025-02-08] MEDS: CLOPIDOGREL 75 MG TABLET PO SCH (16:29)
[2025-02-09 06:13] LABS: Absolute Basophils 0.1 K/uL (0-0.5); Absolute Eosinophils 0.1 K/uL (0-0.5); Absolute Lymphocytes (CBC) 0.8 K/uL (0.7-4.9); Absolute Monocytes 1.2 K/uL (0.1-1.3); Absolute Neutrophil 6.3 K/uL (1.8-8.0); Eosinophils % 1.6 % (0-4.4); Hemoglobin 9.7 g/dL (13.6-17.9); Lymphocytes % 9.5 % (15.3-44.8); MCH 29.3 pg (27.0-35.0); MCHC 34.5 g/dL (32.0-36.0); MCV 84.8 fL (80-100); MPV 8.2 fL (7.6-11.3); Monocytes % 13.8 % (3.3-12.3); Neutrophils % 74.1 % (41.7-73.7); Nucleated Red Blood Cells % 0.3 % (0-0); Platelets 274 thou/uL (152-406); Red Cell Distribution Width 14.4 % (12.1-15.2)
[2025-02-09 06:30] LABS: Anion Gap 9.6 mEq/L (5.0-15.0); Potassium 3.6 mEq/L (3.5-5.1)
[2025-02-09] MEDS: ENOXAPARIN 40 MG/0.4 ML SQ SCH (08:15)
[2025-02-09] MEDS: OXYCODONE HCL 5 MG TAB PO ONE (08:49)
--- NOTE | 2025-02-09 12:51 | EKG ---
Test Date: 2025-02-05 Test Time: 20:31:24 Technical Solution Architect: HERVE MEASUREMENT RESULTS: Intervals: Rate: 82 [place]: 146 QRSD: 98 QT: 384 QTc: 448 [place]: P: 68 [place]: 146 QRS: 25 T: 16 INTERPRETIVE STATEMENTS: Sinus rhythm with occasional premature ventricular complexes Otherwise normal ECG Compared to ECG 02/02/2025 20:03:06 Ventricular premature complex(es) now present Myocardial infarct finding no longer present Electronically Signed On 02-09-25 12:41:34 CDT by Bari Gong
--- NOTE | 2025-02-09 13:04 | EKG ---
Test Date: 2025-02-02 Test Time: 20:03:06 Counter Stacker: NORM MEASUREMENT RESULTS: Intervals: Rate: 84 OH: 154 QRSD: 106 QT: 378 QTc: 446 [place]: P: 83 [place]: 154 QRS: 28 T: 95 INTERPRETIVE STATEMENTS: Normal sinus rhythm Possible Inferior infarct, age undetermined Abnormal ECG Compared to ECG 01/31/2025 20:14:30 No significant changes Electronically Signed On 02-09-25 12:45:51 CDT by Bari Gong
--- NOTE | 2025-02-09 13:15 | EKG ---
Test Date: 2025-01-31 Test Time: 20:14:30 Operator Technician: [place] MEASUREMENT RESULTS: Intervals: Rate: 75 [place]: 164 QRSD: 108 QT: 402 QTc: 448 [place]: P: 83 [place]: 164 QRS: 35 T: 72 INTERPRETIVE STATEMENTS: Normal sinus rhythm Possible Lateral infarct, age undetermined Inferior infarct, age undetermined Abnormal ECG No previous ECG available for comparison Electronically Signed On 02-09-25 12:52:10 CDT by Bari Gong
--- NOTE | 2025-02-09 14:47 | P.PN ---
Subjective Date of Service: 02/09/25 Chief Complaint: Left hip fracture Subjective: No chest pain or shortness of breath. No nausea or vomiting. No abdominal pain. No obvious bleeding. Looks comfortable in the bed. Hip pain ok controlled. Objective: General appearance: Alert and comfortable CVS: Normal S1 and S2 Lungs: Clear to auscultation bilaterally Abdomen: Soft, bowel sounds present, no tenderness Extremities: No lower extremity edema Physical Examination - Vital Signs Temperature: 97.6 F Blood Pressure: 148/73 Pulse: 89 Respirations: 18 Pulse Ox (%): 96 - Studies Medications List Reviewed: Yes Assessment And Plan - Plan 1. Left hip fracture s/p surgery, f/u with ortho 2. Left rib fracture: pain controlled 3. UTI: given Rocephin, urine culture not sent, no fever and wbc normal now 4. History of CVA: continue with antiplatelet therapy and statin therapy 5. Type 2 diabetes mellitus: Sliding scale insulin 6. Hypertension 7. Thyroid nodule/mass: Follow-up with US as outpatient 8. Elevated creatinine 9. Anemia; acute blood loss; stable, continue monitoring H&H. 10. Elevated trop: ordered echo but Dr. Paez rec o/p f/u and get echo Plan discussed with patient and nursing staff, discussed with case management team, waiting for placement.
[2025-02-10 06:08] LABS: Absolute Basophils 0.1 K/uL (0-0.5); Absolute Eosinophils 0.1 K/uL (0-0.5); Absolute Lymphocytes (CBC) 0.8 K/uL (0.7-4.9); Absolute Monocytes 1.1 K/uL (0.1-1.3); Basophils % 0.6 % (0-1.3); Eosinophils % 1.1 % (0-4.4); Hematocrit 25.5 % (39.6-49.0); Hemoglobin 8.8 g/dL (13.6-17.9); Lymphocytes % 9.6 % (15.3-44.8); MCH 29.5 pg (27.0-35.0); MCHC 34.7 g/dL (32.0-36.0); MPV 8.3 fL (7.6-11.3); Monocytes % 13.5 % (3.3-12.3); Neutrophils % 75.2 % (41.7-73.7); Nucleated Red Blood Cells % 0.1 % (0-0); Platelets 271 thou/uL (152-406); Red Cell Distribution Width 15.2 % (12.1-15.2)
[2025-02-10 06:23] LABS: Anion Gap 10.7 mEq/L (5.0-15.0); Potassium 3.7 mEq/L (3.5-5.1)
[2025-02-10 09:27] VITALS: O2SAT 98
--- NOTE | 2025-02-10 12:31 | P.DS ---
Admission Date: 01/31/25 Discharge Date: 02/10/25 Disposition: TRANSFER TO SNF - MEDICAL Discharge Condition: GOOD Reason for Admission: Left hip fracture Hospital Course: Discharge diagnosis: 1. Left hip fracture s/p surgery, f/u with ortho 2. Left rib fracture: pain controlled 3. UTI: given Rocephin, urine culture not sent, no fever and wbc normal now 4. History of CVA: continue with antiplatelet therapy and statin therapy 5. Type 2 diabetes mellitus: resume metfromin 6. Hypertension: Continue home medications. 7. Thyroid nodule/mass: Follow-up with US as outpatient 8. Acute renal failure: Resolved. 9. Anemia; acute blood loss; stable, follow-up with PCP. 10. Elevated trop: ordered echo but Dr. Paez rec o/p f/u and get echo Plan discussed with patient and nursing staff, discussed with case management team, DC to [facility] Hospital course: 74-year-old patient admitted with left hip fracture, orthopedics was consulted, he had surgery done, postoperatively he is recuperating well, physical therapy was following and recommending [facility] facility placement, case management team was working on the placement, I was notified by the case management team today that he was accepted to a [facility] facility today, when I see the patient this morning, he is doing well without any acute problems, hip pain is reasonably controlled, otherwise no other acute issues going on so I am plan to discharge him to go to rehab, follow-up with PCP, cardiology and orthopedics. I discussed with Dr. Ashley this morning, he is recommending total 4 weeks of Lovenox for DVT prophylaxis. Subjective: No chest pain or shortness of breath. No nausea or vomiting. No abdominal pain. No obvious bleeding. Looks comfortable in the bed. Hip pain controlled with pain meds. Objective: General appearance: Alert and comfortable CVS: Normal S1 and S2 Lungs: Clear to auscultation bilaterally Abdomen: Soft, bowel sounds present, no tenderness Extremities: No lower extremity edema Vital Signs/Physical Exam: Temp Pulse Resp BP Pulse Ox 98.0 F 88 18 115/64 98 02/10/25 08:00 02/10/25 10:00 02/10/25 09:42 02/10/25 10:00 02/10/25 09:42 Laboratory Data at Discharge: WBC 8.00 thou/uL (4.3-10.9) 02/10/25 04:54 Hgb 8.8 g/dL (13.6-17.9) L D 02/10/25 04:54 Hct 25.5 % (39.6-49.0) L 02/10/25 04:54 Plt Count 271 thou/uL (152-406) 02/10/25 04:54 PT 13.1 SECONDS (10-13.0) H 02/01/25 05:36 INR 1.16 02/01/25 05:36 APTT 25.0 SECONDS (27.2-37.4) L 02/01/25 05:36 Sodium 139 mEq/L (136-145) 02/10/25 04:54 Potassium 3.7 mEq/L (3.5-5.1) 02/10/25 04:54 BUN 18 mg/dL (7-18) 02/10/25 04:54 Creatinine 0.90 mg/dL (0.70-1.30) 02/10/25 04:54 Glucose 137 mg/dL (74-106) H 02/10/25 04:54 Phosphorus 2.4 mg/dL (2.5-4.9) L 02/06/25 12:38 Magnesium 2.0 mg/dL (1.6-2.4) 02/05/25 21:20 Total Bilirubin 1.3 mg/dL (0.2-1.0) H 02/08/25 07:39 AST 13 U/L (15-37) L 02/08/25 07:39 ALT < 14 U/L (16-61) L 02/08/25 07:39 Alkaline Phosphatase 85 U/L (45-117) 02/08/25 07:39 Home Medications: Amlodipine Besylate 10 mg PO DAILY 01/31/25 Aspirin [Aspirin Regimen] 81 mg PO DAILY 01/31/25 Clopidogrel Bisulfate [Plavix*] 75 mg PO DAILY 01/31/25 Lisinopril/Hydrochlorothiazide [Lisinopril-Hctz 20-12.5 mg Tab] 1 each PO DAILY 01/31/25 Metformin ER [Glucophage ER*] 500 mg PO DAILY 01/31/25 Metoprolol Tartrate 50 mg PO BID 01/31/25 Pravastatin Sodium 40 mg PO DAILY 01/31/25 Enoxaparin Sodium [Lovenox 40 MG INJ*] 40 mg SQ DAILY #18 syr 02/10/25 Hydrocodone 7.5/APAP 325 [[place] 7.5/325 mg*] 1 tab PO TID PRN #15 tab 02/10/25 New Medications: Enoxaparin Sodium [Lovenox 40 MG INJ*] 40 mg SQ DAILY #18 syr Hydrocodone 7.5/APAP 325 [[place] 7.5/325 mg*] 1 tab PO TID PRN #15 tab PRN Reason: Pain Scale 5-7 (Moderate) Diet: ADA Activity: Ad eleanor Followup: NONE,NONE [UNKNOWN] - 1 Week (f/u with PCP in 1 week with CBC and CMP. Thyroid nodule will need f/u with ultrasound) Nilo Paez MD [ACTIVE - CAN ADMIT] - Evan Ashley MD [ACTIVE - CAN ADMIT] - 1-2 Weeks Time spent managing pt's care (in minutes): 34
[2025-02-10 12:54] VITALS: BP 109/56; TEMP 98.1
== END 2025-02-10 16:53 | DRG 481 ==
LOC: ER 14:33 → ERHOLD 19:48 → 4TH 23:06
PROVIDERS: ADMIT Family Medicine; ATTEND Hospitalist
PROC: 0QS706Z Reposition Left Upper Femur with Intramedullary Internal Fixation Device, Open Approach (ICD-10-PCS; principal; 2025-02-01 11:00)
DX: S72.142A Displaced intertrochanteric fracture of left femur, initial encounter for closed fracture (principal); D62 Acute posthemorrhagic anemia; S22.32XA Fracture of one rib, left side, initial encounter for closed fracture; N39.0 Urinary tract infection, site not specified; I69.354 Hemiplegia and hemiparesis following cerebral infarction affecting left non-dominant side; N17.9 Acute kidney failure, unspecified; E11.9 Type 2 diabetes mellitus without complications; I10 Essential (primary) hypertension; E04.1 Nontoxic single thyroid nodule; E88.810 Metabolic syndrome; S70.12XA Contusion of left thigh, initial encounter; I25.10 Atherosclerotic heart disease of native coronary artery without angina pectoris; R79.89 Other specified abnormal findings of blood chemistry; Z95.5 Presence of coronary angioplasty implant and graft; Z79.82 Long term (current) use of aspirin; Z79.02 Long term (current) use of antithrombotics/antiplatelets; Z79.84 Long term (current) use of oral hypoglycemic drugs; Z79.899 Other long term (current) drug therapy; W19.XXXA Unspecified fall, initial encounter; Y93.89 Activity, other specified; Y92.007 Garden or yard of unspecified non-institutional (private) residence as the place of occurrence of the external cause; Y99.9 Unspecified external cause status
CPT/HCPCS: 36415; 51702; 70450; 71260; 72125; 72170; 74177; 80048; 80053; 81001; 82947; 83735; 84100; 84484; 85014; 85018; 85025; 85610; 85730; 86850; 86900; 86901; 93005; 94010; 96365; 96366; 96375; 97110; 97116; 97161; 97530; 97542; 99285; J0171; J0696; J1100; J1171; J1650; J1815; J1938; J2003; J2250; J2371; J2405; J2704; J2800; J3010; J7030; J7040; P9047; Q9967